=== PATIENT | male | born 1975 | race Caucasian/White ===

== ENCOUNTER 2017-09-19 17:25 | Emergency (ER) | payer MEDICAID ==
[2017-09-19 17:38] VITALS: BP 123/58; PULSE 80; RESP 18; TEMP 97.8; O2SAT 99
[2017-09-19] MEDS ORDERED: Clindamycin 600 MG in Sodium Chloride 0.9% 100 ML IVPB STA (17:52)
--- NOTE | 2017-09-19 17:56 | ED PDOC ---
Lower Extremity Pain/Injury Time Seen by Provider: 09/19/17 17:45 Chief Complaint (Nursing): Lower Extremity Problem/Injury Chief Complaint (Provider): Left leg pain History Per: Patient History/Exam Limitations: no limitations Onset/Duration Of Symptoms: Days (2) Additional Complaint(s): Patient is a 42 y/o male with no significant past medical history presenting to the emergency department for left leg redness and ankle swelling since yesterday. Reports that he injured himself when he was moving a bed. Denies itchiness, fever, scratches, or other complaints. PCP: none provided. Past Medical History Reviewed: Historical Data, Nursing Documentation, Vital Signs Vital Signs: Last Vital Signs Temp 97.8 F 09/19/17 17:36 Pulse 80 09/19/17 17:36 Resp 18 09/19/17 17:36 BP 123/58 L 09/19/17 17:36 Pulse Ox 99 09/19/17 17:36 - Medical History PMH: No Chronic Diseases - Family History Family History: States: Diabetes - Home Medications Home Medications: Ambulatory Orders Medication Instructions Recorded Clindamycin [Cleocin] 1 tab PO QID #28 cap 09/19/17 - Allergies Allergies/Adverse Reactions: Allergies Allergy/AdvReac Type Severity Reaction Status Date / Time Sulfa (Sulfonamide Allergy RASH Verified 09/19/17 17:38 Antibiotics) Review of Systems ROS Statement: Except As Marked, All Systems Reviewed And Found Negative Constitutional: Negative for: Fever Musculoskeletal: Positive for: Leg Pain (left leg pain, redness, and swelling) Skin: Negative for: Other (scratches) Physical Exam - Reviewed Nursing Documentation Reviewed: Yes Vital Signs Reviewed: Yes - Physical Exam Appears: Positive for: Well, Non-toxic, No Acute Distress Head Exam: Positive for: ATRAUMATIC, NORMAL INSPECTION, NORMOCEPHALIC Skin: Positive for: Normal Color, Warm, Dry Eye Exam: Positive for: Normal appearance Neck: Positive for: Normal Cardiovascular/Chest: Positive for: Regular Rate, Rhythm Respiratory: Negative for: Accessory Muscle Use, Respiratory Distress Pulses-Dorsalis Pedis (L): 2+ Pulses-Post. Tibialis (L): 2+ Extremity: Positive for: Normal ROM, Other (moderate edema 10 cm on the anterior aspect of left leg) Neurologic/Psych: Positive for: Alert, Oriented (x3) - Laboratory Results Result Diagrams: 09/19/17 18:00 09/19/17 18:18 - ECG O2 Sat by Pulse Oximetry: 99 (RA) Pulse Ox Interpretation: Normal - Progress ED Course And Treament: XRY OF TIB-FIB: NO ACUTE FX DUPLEX LOWER EXTREMITY: NEG FOR DVT PATIENT REFUSED CLINDAMYCIN AND TORADOL IV, BUT WILL TAKE RX FOR ORAL ANTIBIOTICS HOME. ADVISED TO RETURN TO ED IN 24 TO 48 HOURS FOR WOUND RE-EVALUATION. Medical Decision Making Medical Decision Making: Time: 17:52 Initial impression: Left leg pain Initial plan: Labs: BMP, Lactic Acid, CBC Clindamycin 600 mg Toradol 15 mg IVP Blood Culture Stat Left Tibia/Fibula X-ray Ultrasound Left Lower Extremity ~ Scribe Attestation: Documented by Jessenia Magana, acting as a scribe for JULISSA Gusman. Provider Scribe Attestation: All medical record entries made by the Scribe were at my direction and personally dictated by me. I have reviewed the chart and agree that the record accurately reflects my personal performance of the history, physical exam, medical decision making, and the department course for this patient. I have also personally directed, reviewed, and agree with the discharge instructions and disposition. Disposition - Clinical Impression Clinical Impression: Cellulitis - Patient ED Disposition Is Patient to be Admitted: No - Disposition Disposition: Routine/Home Disposition Time: 19:07 Condition: STABLE Prescriptions: Clindamycin [Cleocin] 1 tab PO QID #28 cap Instructions: Cellulitis (ED) Forms: [employer] (Macedonian)
[2017-09-19 18:22] LABS: BASO % 0.6 % (0.0-2.0); EOS # 0.1 K/uL (0.0-0.7); EOS % 1.4 % (0.0-4.0); HEMATOCRIT 38.4 % (35.0-51.0); LYMPH # 1.6 K/uL (1.0-4.3); LYMPH % 22.5 % (20.0-40.0); MEAN CELL VOLUME 91.3 fl (80.0-94.0); MEAN CORPUSCULAR HEMOGLOBIN 30.4 pg (27.0-31.0); MEAN CORPUSCULAR HGB CONC 33.3 g/dL (33.0-37.0); MEAN PLATELET VOLUME 9.1 fl (7.2-11.7); MONO # 0.5 K/uL (0.0-0.8); MONO % 6.6 % (0.0-10.0); NEUT # 5.1 K/uL (1.8-7.0); NEUT % 68.9 % (50.0-75.0); RED CELL DISTRIBUTION WIDTH 12.9 % (11.5-14.5); WHITE BLOOD COUNT 7.3 K/uL (4.8-10.8)
[2017-09-19 18:50] LABS: BLOOD UREA NITROGEN 15 mg/dl (9-20); CALCIUM 9.5 mg/dL (8.4-10.2); CARBON DIOXIDE 27 mmol/L (22-30); CHLORIDE 104 mmol/L (98-107); GFR AFRICAN-AMERICAN > 60; GLUCOSE,RANDOM 95 mg/dL (75-110); POTASSIUM 3.6 MMOL/L (3.6-5.0); SODIUM 142 mmol/l (132-148)
--- NOTE | 2017-09-19 18:52 | US ---
Left lower extremity ultrasound. Indication: Left leg pain Technique: Duplex ultrasound evaluation of the left lower extremity Comparison: None available Findings: There is normal flow, compressibility, and augmentation of the left common femoral, femoral, and popliteal veins. The left posterior tibial vein appears patent. Impression: No evidence of deep venous thrombosis in the left lower extremity.
--- NOTE | 2017-09-19 18:56 | RAD ---
PROCEDURE: Radiographs of the left tibia and fibula. HISTORY: EVALUATE FOR OSTEO COMPARISON: None available. TECHNIQUE: Frontal and lateral views obtained. FINDINGS: BONES: No acute displaced fracture. No destructive osseous changes appreciated. JOINT SPACES: No dislocation. OTHER FINDINGS: Soft tissues appear unremarkable. No evidence of radiopaque foreign body. IMPRESSION: No acute findings.
== END 2017-09-19 20:05 | disposition home or self-care (01) ==
LOC: H.ER 17:25
DX: L03.116 Cellulitis of left lower limb (principal)